=== PATIENT | female | born 1965 | race Two or more races ===

== ENCOUNTER 2020-07-05 18:26 | Emergency (ER) | payer OTHER ==
[~2020-07-05] VITALS: Ht 152.4 cm; Wt 90.7 kg
[2020-07-05] MEDS ORDERED: IBUPROFEN 600 MG TABLET PO ONE (19:30)
[2020-07-05] MEDS ORDERED: IBUPROFEN 600 MG TABLET ONE (19:33)
[2020-07-05 19:59] VITALS: BP 135/77
--- NOTE | 2020-07-05 19:59 | NUR ---
Patient discharged to home in stable condition. Written and verbal after care instructions given. Patient verbalizes understanding of instructions. Stressed follow up or return to ER for worsening s/s.
== END 2020-07-05 20:00 | disposition home or self-care (01) ==
LOC: ER 18:30
DX: S50.11XA Contusion of right forearm, initial encounter (principal); W19.XXXA Unspecified fall, initial encounter; Y92.89 Other specified places as the place of occurrence of the external cause
CPT/HCPCS: 73060; 73090; 73130; A4663